=== PATIENT | male | born 1940 | race Caucasian/White ===

== ENCOUNTER 2020-02-08 14:49 | Emergency (ER) | payer MEDICARE ==
[~2020-02-08] VITALS: Ht 167.6 cm; Wt 89.4 kg
[2020-02-08] MEDS ORDERED: SODIUM CHLORIDE 0.9% 1000ML 1,000 ML IV ONE (14:50)
[2020-02-08 15:58] LABS: BASOPHILS % (AUTO) 0.6 % (0.0-5.0); EOSINOPHILS % (AUTO) 2.4 % (0.0-8.0); HEMATOCRIT 37.8 % (42-54); LYMPHOCYTES % (AUTO) 27.6 % (21.0-51.0); MEAN CORPUSCULAR HEMOGLOBIN 28.7 pg (27.0-33.0); MEAN CORPUSCULAR HGB CONC 31.7 g/dL (32.0-36.0); MEAN CORPUSCULAR VOLUME 90.4 fL (79-99); MONOCYTES % (AUTO) 9.1 % (3.0-13.0); NEUTROPHILS % (AUTO) 59.9 % (40.0-77.0); PLATELET COUNT (AUTO) 206 K/uL (130-400); RED BLOOD CELL COUNT(AUTO) 4.18 MIL/uL (4.50-6.20); RED CELL DISTRIBUTION WIDTH 14.3 % (11.0-15.5)
[2020-02-08 16:08] LABS: CREATININE 1.2 mg/dL (0.5-1.5); POTASSIUM 4.4 mmol/L (3.5-5.1)
[2020-02-08 16:13] LABS: ALBUMIN 3.6 g/dL (3.5-5.0); BILIRUBIN,TOTAL 0.3 mg/dL (0.2-1.0); TOTAL PROTEIN, SERUM 7.3 g/dL (6.0-8.3)
[2020-02-08 16:13] LABS: APPEARANCE,URINE Clear (CLEAR); BILIRUBIN,URINE Negative (NEGATIVE); COLOR,URINE Yellow (YELLOW); GLUCOSE, URINE (UA) Negative (NEGATIVE); KETONES,URINE Negative (NEGATIVE); LEUKOCYTE ESTERASE ,URINE Negative (NEGATIVE); NITRATE,URINE Negative (NEGATIVE); OCCULT BLOOD,URINE Negative (NEGATIVE); PH,URINE 5.5 (5.0-8.0); PROTEIN,URINE Negative (NEGATIVE); UROBILINOGEN,URINE 0.2 mg/dL (0.2-1.0)
[2020-02-08] MEDS ORDERED: KETOROLAC TROMETHAMINE 30MG/ML ONE (16:14)
[2020-02-08 17:18] LABS: AMYLASE 48 U/L (25-115); LIPASE 161 U/L (114-286)
[2020-02-08] MEDS ORDERED: PANTOPRAZOLE 40 MG/VIAL IVP SCH (17:30)
== END 2020-02-08 19:25 | disposition left against medical advice (07) ==
LOC: EDH 14:49
DX: R10.84 Generalized abdominal pain (principal); M51.35 Other intervertebral disc degeneration, thoracolumbar region; K62.89 Other specified diseases of anus and rectum; R39.89 Other symptoms and signs involving the genitourinary system; F31.9 Bipolar disorder, unspecified
CPT/HCPCS: 36415; 74176; 80053; 81003; 82150; 83690; 83880; 84484; 85025; 93005; 96374; 96375; 99291; C9113; J1885; J7030

== ENCOUNTER 2020-02-13 13:59 | Emergency (ER) | payer MEDICARE ==
[2020-02-13 14:38] LABS: BASOPHILS % (AUTO) 0.7 % (0.0-5.0); EOSINOPHILS % (AUTO) 3.7 % (0.0-8.0); HEMATOCRIT 37.6 % (42-54); LYMPHOCYTES % (AUTO) 27.6 % (21.0-51.0); MEAN CORPUSCULAR HEMOGLOBIN 28.4 pg (27.0-33.0); MEAN CORPUSCULAR HGB CONC 31.9 g/dL (32.0-36.0); MEAN CORPUSCULAR VOLUME 89.1 fL (79-99); NEUTROPHILS % (AUTO) 59.7 % (40.0-77.0); PLATELET COUNT (AUTO) 211 K/uL (130-400); RED BLOOD CELL COUNT(AUTO) 4.22 MIL/uL (4.50-6.20); RED CELL DISTRIBUTION WIDTH 14.5 % (11.0-15.5); WHITE BLOOD COUNT (AUTO) 5.9 K/uL (4.8-10.8)
[2020-02-13 14:52] LABS: APPEARANCE,URINE Clear (CLEAR); BILIRUBIN,URINE Negative (NEGATIVE); COLOR,URINE Dark Yellow (YELLOW); GLUCOSE, URINE (UA) Negative (NEGATIVE); KETONES,URINE Negative (NEGATIVE); LEUKOCYTE ESTERASE ,URINE Negative (NEGATIVE); NITRATE,URINE Negative (NEGATIVE); OCCULT BLOOD,URINE Negative (NEGATIVE); PH,URINE 6.5 (5.0-8.0); PROTEIN,URINE POS 1+ mg/dL (NEGATIVE); UROBILINOGEN,URINE 0.2 mg/dL (0.2-1.0)
[2020-02-13 14:55] LABS: CREATININE 1.2 mg/dL (0.5-1.5); POTASSIUM 4.1 mmol/L (3.5-5.1)
[2020-02-13 14:56] LABS: INR 0.94 (0.85-1.15); PARTIAL THROMBOPLASTIN TIME 25.1 SEC (26.3-35.5); PROTHROMBIN TIME 10.2 SEC (9.6-11.6)
[2020-02-13 15:01] LABS: ALBUMIN 3.4 g/dL (3.5-5.0); BILIRUBIN,TOTAL 0.3 mg/dL (0.2-1.0); TOTAL PROTEIN, SERUM 7.1 g/dL (6.0-8.3)
[2020-02-13 15:03] LABS: BACTERIA,URINE Rare /HPF (None Seen); RBC,URINE None Seen /HPF (0-1); SQUAMOUS EPITHELIAL CELL,UR None Seen /HPF (0-2)
[2020-02-13 15:32] LABS: B-TYPE NATRIURETIC PEPTIDE 166 pg/mL (0-100)
[2020-02-13] MEDS ORDERED: ACETAMINOPHEN 325 MG TAB ONE (16:00)
[2020-02-13] MEDS ORDERED: AZITHROMYCIN 250 MG TABLET PO ONE (16:00)
== END 2020-02-13 17:03 | disposition home or self-care (01) ==
LOC: EDH 13:59
DX: R10.9 Unspecified abdominal pain (principal); M54.5 Low back pain; R35.0 Frequency of micturition; F31.9 Bipolar disorder, unspecified
CPT/HCPCS: 36415; 71045; 80053; 81001; 82550; 83690; 83880; 84484; 85025; 85610; 85730; 93005

== ENCOUNTER → 2020-04-30 | Outpatient (CLI) | payer MEDICARE ==
[~2020-04-30] MED LIST: GADODIAMIDE 10 MMOL/20 ML VIAL IV ONE
== END | disposition home or self-care (01) ==
LOC: RAH 12:40
PROVIDERS: ATTEND Internal Medicine
DX: M47.816 Spondylosis without myelopathy or radiculopathy, lumbar region (principal); M51.24 Other intervertebral disc displacement, thoracic region
CPT/HCPCS: 72157; 72158; A9579

== ENCOUNTER → 2020-05-10 | Outpatient (CLI) | payer MEDICARE | END | disposition home or self-care (01) | LOC: RAH 11:10 | PROVIDERS: ATTEND Internal Medicine | DX: R10.10 Upper abdominal pain, unspecified (principal) | CPT/HCPCS: 78264; A9541 ==

== ENCOUNTER → 2020-07-24 | Outpatient (CLI) | payer MEDICARE ==
[~2020-07-24] MED LIST changes: -GADODIAMIDE 10 MMOL/20 ML VIAL IV ONE; +IOHEXOL-350 75 ML VIAL IV ONE
== END | disposition home or self-care (01) ==
LOC: RAH 09:20
PROVIDERS: ATTEND Internal Medicine Gastroenterology
DX: N20.0 Calculus of kidney (principal); N28.1 Cyst of kidney, acquired; J90 Pleural effusion, not elsewhere classified; J98.11 Atelectasis; R16.0 Hepatomegaly, not elsewhere classified; I25.10 Atherosclerotic heart disease of native coronary artery without angina pectoris; M47.815 Spondylosis without myelopathy or radiculopathy, thoracolumbar region; R14.0 Abdominal distension (gaseous)
CPT/HCPCS: 74178; Q9967

== ENCOUNTER 2021-08-16 19:58 | Inpatient (IN) | payer MEDICARE ==
[~2021-08-16] VITALS: Ht 167.6 cm; Wt 94.8 kg
[2021-08-16] MEDS ORDERED: HYDROMORPHONE 1 MG INJ IVP ONE (21:30)
[2021-08-16] MEDS ORDERED: 0.9%NACL 1000ML 1,000 ML IV ONE (21:30)
[2021-08-16] MEDS ORDERED: ONDANSETRON 4MG INJ IVP ONE (21:30)
[2021-08-16] MEDS ORDERED: ONDANSETRON 4MG INJ ONE (21:52)
[2021-08-16] MEDS ORDERED: HYDROMORPHONE 0.5 MG SYG (0.5MG/0.5ML) ONE (21:53)
[2021-08-16 21:57] LABS: BASOPHILS % (AUTO) 0.2 % (0.0-5.0); EOSINOPHILS % (AUTO) 0.3 % (0.0-8.0); HEMATOCRIT 38.1 % (42-54); LYMPHOCYTES % (AUTO) 13.5 % (21.0-51.0); MEAN CORPUSCULAR HEMOGLOBIN 31.4 pg (27.0-33.0); MEAN CORPUSCULAR HGB CONC 31.2 g/dL (32.0-36.0); MEAN CORPUSCULAR VOLUME 100.5 fL (79-99); MONOCYTES % (AUTO) 9.3 % (3.0-13.0); NEUTROPHILS % (AUTO) 75.4 % (40.0-77.0); PLATELET COUNT (AUTO) 219 K/uL (130-400); RED BLOOD CELL COUNT(AUTO) 3.79 MIL/uL (4.50-6.20); RED CELL DISTRIBUTION WIDTH 14.7 % (11.0-15.5); WHITE BLOOD COUNT (AUTO) 12.6 K/uL (4.8-10.8)
[2021-08-16 22:16] LABS: CREATININE 1.1 mg/dL (0.5-1.5); POTASSIUM 4.5 mmol/L (3.5-5.1)
[2021-08-16 22:21] LABS: ALBUMIN 3.1 g/dL (3.5-5.0); BILIRUBIN,TOTAL 1.6 mg/dL (0.2-1.0); TOTAL PROTEIN, SERUM 7.1 g/dL (6.0-8.3)
[2021-08-17] MEDS ORDERED: ACETAMINOPHEN 325 MG TAB PO PRN ×2 (01:00)
[2021-08-17] MEDS ORDERED: NITROGLYCERIN 0.4 MG SL TAB SL PRN (01:00)
[2021-08-17] MEDS ORDERED: ONDANSETRON 4MG INJ IV PRN (01:00)
[2021-08-17 01:20] LABS: HEMOGLOBIN A1C 7.1 % (4.0-6.0)
[2021-08-17] MEDS: LACTATED RINGERS 1000ML 1,000 ML IV SCH ×3 (01:39→20:19)
[2021-08-17 02:05] LABS: APPEARANCE,URINE Clear (CLEAR); BILIRUBIN,URINE Small (NEGATIVE); COLOR,URINE Dark Yellow (YELLOW); GLUCOSE, URINE (UA) Negative (NEGATIVE); KETONES,URINE Trace mg/dL (NEGATIVE); LEUKOCYTE ESTERASE ,URINE Trace (NEGATIVE); NITRATE,URINE Negative (NEGATIVE); OCCULT BLOOD,URINE Negative (NEGATIVE); PROTEIN,URINE Trace mg/dL (NEGATIVE)
[2021-08-17 02:14] LABS: BACTERIA,URINE Few /HPF (None Seen); RBC,URINE 0-1 /HPF (0-1); SQUAMOUS EPITHELIAL CELL,UR 0-2 /HPF (0-2); WBC,URINE 0-1 /HPF (0-1)
[2021-08-17 06:41] LABS: BASOPHILS % (AUTO) 0.1 % (0.0-5.0); EOSINOPHILS % (AUTO) 0.2 % (0.0-8.0); HEMATOCRIT 35.8 % (42-54); LYMPHOCYTES % (AUTO) 12.3 % (21.0-51.0); MEAN CORPUSCULAR HEMOGLOBIN 31.2 pg (27.0-33.0); MEAN CORPUSCULAR VOLUME 100.6 fL (79-99); MONOCYTES % (AUTO) 11.6 % (3.0-13.0); NEUTROPHILS % (AUTO) 74.8 % (40.0-77.0); PLATELET COUNT (AUTO) 201 K/uL (130-400); RED BLOOD CELL COUNT(AUTO) 3.56 MIL/uL (4.50-6.20); RED CELL DISTRIBUTION WIDTH 14.8 % (11.0-15.5)
[2021-08-17 06:52] LABS: INR 1.07 (0.85-1.15); PROTHROMBIN TIME 11.6 SEC (9.6-11.6)
[2021-08-17 06:54] LABS: PARTIAL THROMBOPLASTIN TIME 25.2 SEC (26.3-35.5)
[2021-08-17 06:59] LABS: ALBUMIN 2.6 g/dL (3.5-5.0); MAGNESIUM 1.6 mg/dL (1.80-2.40); POTASSIUM 4.9 mmol/L (3.5-5.1); TOTAL PROTEIN, SERUM 6.1 g/dL (6.0-8.3)
[2021-08-17 07:06] LABS: CHOLESTEROL 108 mg/dL (<200); HDL CHOLESTEROL 36 mg/dL (29-71); LDL DIRECT 34 mg/dL (0-99); TRIGLYCERIDES 126 mg/dL (30-200)
[2021-08-17] MEDS ORDERED: MAGNESIUM 2GM PREMIX 50ML 50 ML IV PRN (07:30)
[2021-08-17 07:59] VITALS: BP 146/69
[2021-08-17] MEDS: ENOXAPARIN SODIUM 40 MG/0.4 ML SYRINGE SQ SCH (09:00)
[2021-08-17] MEDS: FAMOTIDINE 20MG VIAL IV SCH ×2 (10:20→20:19)
[2021-08-17 10:51] VITALS: BP 153/74
[2021-08-17] MEDS ORDERED: ZOSYN 3.375GM +NS 50ML IV SCH (11:30)
[2021-08-17] MEDS: ZOSYN 3.375GM+NS 50ML 50 ML IV SCH ×2 (12:40→20:19)
[2021-08-17] MEDS ORDERED: GADOTERATE MEGLUMINE 10 MMOL/20 ML VIAL IV ONE (13:47)
[2021-08-17 16:12] VITALS: BP 135/67
[2021-08-17] MEDS ORDERED: RIVA20TA PO (19:52)
[2021-08-17] MEDS ORDERED: LEVO100C4 PO (19:52)
[2021-08-17] MEDS ORDERED: DIVA500T52 PO (19:52)
[2021-08-17] MEDS ORDERED: QUET25TA36 PO (19:52)
[2021-08-17] MEDS ORDERED: TRAZ-185 PO (19:52)
[2021-08-17] MEDS ORDERED: AMIO200T68 PO (19:52)
[2021-08-17] MEDS ORDERED: FURO20TA4 PO (19:52)
[2021-08-17] MEDS ORDERED: IRON1CAP30 PO (19:52)
[2021-08-17] MEDS ORDERED: ROSU20TA31 PO (19:52)
[2021-08-17] MEDS ORDERED: OMEG-184 PO (19:52)
[2021-08-17] MEDS ORDERED: VITA1CAP PO (19:52)
[2021-08-17 20:00] VITALS: BP 161/79
[2021-08-18] VITALS (18 sets, daily range): BP systolic 91–193; BP diastolic 41–90
[2021-08-18] MEDS ORDERED: TRAZODONE HCL 50 MG TAB PO SCH ×2 (01:30→21:00)
[2021-08-18] MEDS: ZOSYN 3.375GM+NS 50ML 50 ML IV SCH ×3 (04:41→20:50)
[2021-08-18] MEDS: LACTATED RINGERS 1000ML 1,000 ML IV SCH (04:45)
[2021-08-18 05:45] LABS: HEMATOCRIT 35.5 % (42-54); RED BLOOD CELL COUNT(AUTO) 3.55 MIL/uL (4.50-6.20); RED CELL DISTRIBUTION WIDTH 14.6 % (11.0-15.5); WHITE BLOOD COUNT (AUTO) 9.6 K/uL (4.8-10.8)
[2021-08-18 06:05] LABS: ALBUMIN 2.5 g/dL (3.5-5.0); BILIRUBIN,TOTAL 5.8 mg/dL (0.2-1.0); MAGNESIUM 1.9 mg/dL (1.80-2.40); TOTAL PROTEIN, SERUM 6.4 g/dL (6.0-8.3)
[2021-08-18] MEDS: LEVOTHYROXINE 100 MCG TABLET PO SCH (07:12)
[2021-08-18] MEDS: AMIODARONE 200 MG TABLET PO SCH ×2 (09:00→20:50)
[2021-08-18] MEDS: ENOXAPARIN SODIUM 40 MG/0.4 ML SYRINGE SQ SCH ×2 (09:00→09:25)
[2021-08-18] MEDS ORDERED: FUROSEMIDE 20 MG TABLET PO SCH (09:00)
[2021-08-18] MEDS: FAMOTIDINE 20MG VIAL IV SCH ×2 (09:23→20:50)
[2021-08-18] MEDS: FE FUMARATE/FA/MV, MIN COMB#15 1 TAB PO SCH (09:23)
[2021-08-18] MEDS: VITAMIN B COMPLEX 1 CAPSULE PO SCH (09:23)
[2021-08-18] MEDS: FISH OIL 1000 MG/CAP PO SCH (09:23)
[2021-08-18 10:34] LABS: ABG BASE EXCESS 6.6 mmol/L (-2.0-3.0); ABG HCO3 31.5 mmol/L (21.0-28.0); ABG OXYGEN SATURATION 92.5 % (95.0-99.0); ABG PCO2 46 mmHg (35-48)
[2021-08-18] MEDS ORDERED: VANCOMYCIN PROTOCOL PER PHARMACY IV SCH ×2 (11:30→12:00)
[2021-08-18] MEDS ORDERED: FUROSEMIDE 20MG VIAL ONE (11:46)
[2021-08-18] MEDS ORDERED: IPRATROPIUM/ALBUTEROL SULFATE 3 ML SOLUTION IH SCH (12:00)
[2021-08-18] MEDS: FUROSEMIDE 20MG VIAL IV SCH (12:15)
[2021-08-18] MEDS ORDERED: VANCOMYCIN 1.25GM/NS 250ML IVPB SCH ×2 (13:00)
[2021-08-18] MEDS ORDERED: MORPHINE 2 MG SYG IVP PRN (13:30)
[2021-08-18] MEDS: ACETAMINOPHEN WITH CODEINE 1 TAB TAB PO PRN (13:47)
[2021-08-18] MEDS: VANCOMYCIN 750MG VIAL IV SCH (17:29)
[2021-08-18] MEDS ORDERED: VANCOMYCIN KIT 1 GM/250 ML IV.KIT IV ONE (18:00)
[2021-08-18] MEDS: ATORVASTATIN 40 MG TABLET PO SCH (20:50)
[2021-08-18] MEDS: DIVALPROEX SODIUM 250 MG TABLET.DR PO SCH (20:50)
[2021-08-18] MEDS ORDERED: TRAZODONE HCL 50 MG TAB PO PRN (21:00)
[2021-08-18] MEDS ORDERED: VANCOMYCIN KIT 1 GM/250 ML IV.KIT IV SCH (21:00)
[2021-08-18] MEDS ORDERED: QUETIAPINE FUMARATE 25 MG TAB PO SCH (21:00)
[2021-08-18] MEDS ORDERED: 0.9% NACL 250ML 250 ML IV SCH (21:00)
[2021-08-19] VITALS (27 sets, daily range): BP systolic 90–134; BP diastolic 43–68
[2021-08-19] MEDS: FUROSEMIDE 20MG VIAL IV SCH ×2 (00:03→11:38)
[2021-08-19] MEDS: ACETAMINOPHEN WITH CODEINE 1 TAB TAB PO PRN (03:28)
[2021-08-19 04:48] LABS: CREATININE 1.3 mg/dL (0.5-1.5)
[2021-08-19 05:05] LABS: BASOPHILS % (AUTO) 0.2 % (0.0-5.0); EOSINOPHILS % (AUTO) 1.5 % (0.0-8.0); HEMATOCRIT 35.2 % (42-54); LYMPHOCYTES % (AUTO) 11.5 % (21.0-51.0); MEAN CORPUSCULAR HEMOGLOBIN 31.7 pg (27.0-33.0); MEAN CORPUSCULAR HGB CONC 31.5 g/dL (32.0-36.0); MEAN CORPUSCULAR VOLUME 100.6 fL (79-99); MONOCYTES % (AUTO) 7.6 % (3.0-13.0); NEUTROPHILS % (AUTO) 78.4 % (40.0-77.0); PLATELET COUNT (AUTO) 147 K/uL (130-400); RED CELL DISTRIBUTION WIDTH 14.8 % (11.0-15.5); WHITE BLOOD COUNT (AUTO) 11.1 K/uL (4.8-10.8)
[2021-08-19] MEDS: ZOSYN 3.375GM+NS 50ML 50 ML IV SCH ×3 (05:34→20:16)
[2021-08-19] MEDS: VANCOMYCIN 750MG VIAL IV SCH ×2 (05:34→18:49)
[2021-08-19] MEDS: LEVOTHYROXINE 100 MCG TABLET PO SCH (05:35)
[2021-08-19] MEDS: FE FUMARATE/FA/MV, MIN COMB#15 1 TAB PO SCH (09:00)
[2021-08-19] MEDS: FISH OIL 1000 MG/CAP PO SCH (09:00)
[2021-08-19] MEDS: VITAMIN B COMPLEX 1 CAPSULE PO SCH (09:00)
[2021-08-19] MEDS: FAMOTIDINE 20MG VIAL IV SCH ×2 (11:37→20:16)
[2021-08-19] MEDS: AMIODARONE 200 MG TABLET PO SCH ×2 (11:38→20:16)
[2021-08-19] MEDS: LACTATED RINGERS 1000ML 1,000 ML IV SCH (13:33)
[2021-08-19] MEDS: ENOXAPARIN SODIUM 40 MG/0.4 ML SYRINGE SQ SCH (16:28)
[2021-08-19] MEDS: DIVALPROEX SODIUM 250 MG TABLET.DR PO SCH (20:16)
[2021-08-19] MEDS: ATORVASTATIN 40 MG TABLET PO SCH (20:16)
[2021-08-20] VITALS (30 sets, daily range): BP systolic 93–150; BP diastolic 45–118
[2021-08-20] MEDS: LACTATED RINGERS 1000ML 1,000 ML IV SCH (03:37)
[2021-08-20 04:00] LABS: BASOPHILS % (AUTO) 0.1 % (0.0-5.0); EOSINOPHILS % (AUTO) 0.1 % (0.0-8.0); LYMPHOCYTES % (AUTO) 7.3 % (21.0-51.0); MEAN CORPUSCULAR HEMOGLOBIN 31.1 pg (27.0-33.0); MEAN CORPUSCULAR HGB CONC 30.3 g/dL (32.0-36.0); MEAN CORPUSCULAR VOLUME 102.6 fL (79-99); MONOCYTES % (AUTO) 7.9 % (3.0-13.0); NEUTROPHILS % (AUTO) 83.8 % (40.0-77.0); PLATELET COUNT (AUTO) 139 K/uL (130-400); RED BLOOD CELL COUNT(AUTO) 3.51 MIL/uL (4.50-6.20); RED CELL DISTRIBUTION WIDTH 14.9 % (11.0-15.5); WHITE BLOOD COUNT (AUTO) 14.3 K/uL (4.8-10.8)
[2021-08-20 04:40] LABS: B-TYPE NATRIURETIC PEPTIDE 335 pg/mL (0-100)
[2021-08-20 04:51] LABS: ALBUMIN 1.9 g/dL (3.5-5.0); BILIRUBIN,TOTAL 5.4 mg/dL (0.2-1.0); CREATININE 1.6 mg/dL (0.5-1.5); POTASSIUM 3.6 mmol/L (3.5-5.1); TOTAL PROTEIN, SERUM 6.4 g/dL (6.0-8.3)
[2021-08-20 05:15] LABS: ERYTHROCYTE SEDIMENTATION RATE 125 MM/HR (0-20)
[2021-08-20 05:15] LABS: ABG BASE EXCESS 5.5 mmol/L (-2.0-3.0); ABG HCO3 31.1 mmol/L (21.0-28.0); ABG OXYGEN SATURATION 92.7 % (95.0-99.0); ABG PCO2 50 mmHg (35-48)
[2021-08-20 05:32] LABS: CRP QUANTITATIVE 384.8 mg/L (0.00-9.0)
[2021-08-20] MEDS ORDERED: 0.9% NACL 250ML 250 ML ONE (05:42)
[2021-08-20] MEDS: ZOSYN 3.375GM+NS 50ML 50 ML IV SCH ×3 (05:56→21:28)
[2021-08-20] MEDS: VANCOMYCIN 750MG VIAL IV SCH (05:56)
[2021-08-20] MEDS: LEVOTHYROXINE 100 MCG TABLET PO SCH (05:56)
[2021-08-20] MEDS: ENOXAPARIN SODIUM 40 MG/0.4 ML SYRINGE SQ SCH (09:00)
[2021-08-20] MEDS: FE FUMARATE/FA/MV, MIN COMB#15 1 TAB PO SCH (09:00)
[2021-08-20] MEDS ORDERED: FUROSEMIDE 20MG VIAL IV ONE (09:00)
[2021-08-20] MEDS: FISH OIL 1000 MG/CAP PO SCH (09:00)
[2021-08-20] MEDS: VITAMIN B COMPLEX 1 CAPSULE PO SCH (09:00)
[2021-08-20 09:17] LABS: INR 1.22 (0.85-1.15); PROTHROMBIN TIME 13.1 SEC (9.6-11.6)
[2021-08-20 09:18] LABS: PARTIAL THROMBOPLASTIN TIME 30.2 SEC (26.3-35.5)
[2021-08-20] MEDS: AMIODARONE 200 MG TABLET PO SCH ×2 (10:06→21:28)
[2021-08-20] MEDS: FAMOTIDINE 20MG VIAL IV SCH ×2 (10:06→21:28)
[2021-08-20] MEDS ORDERED: IODIXANOL 320 MG/ML 100 ML VIAL ONE (12:04)
[2021-08-20] MEDS ORDERED: LIDOCAINE HCL 1% MDV 50ML VIAL ONE (12:04)
[2021-08-20] MEDS ORDERED: FENTANYL CITRATE PF 50 MCG/1 ML 2ML VIAL ONE (12:43)
[2021-08-20] MEDS: ACETAMINOPHEN WITH CODEINE 1 TAB TAB PO PRN (13:55)
[2021-08-20] MEDS ORDERED: LACTATED RINGERS 1000ML 1,000 ML IV ONE (14:07)
[2021-08-20] MEDS ORDERED: FUROSEMIDE 20MG VIAL ONE (16:12)
[2021-08-20] MEDS ORDERED: HYDROMORPHONE 0.5 MG SYG (0.5MG/0.5ML) ONE (17:48)
[2021-08-20] MEDS ORDERED: DiphenhydrAMINE HCL 50 MG/ML VIAL IM PRN (18:00)
[2021-08-20] MEDS ORDERED: BISACODYL 10 MG SUPP.RECT RC SCH (18:00)
[2021-08-20] MEDS ORDERED: HALOPERIDOL INJ 5 MG/ML VIAL IM PRN (18:00)
[2021-08-20] MEDS ORDERED: HYDROMORPHONE 0.5 MG SYG (0.5MG/0.5ML) IVP PRN ×2 (18:00)
[2021-08-20] MEDS: LUBIPROSTONE 24 MCG CAP PO SCH (19:00)
[2021-08-20] MEDS ORDERED: LUBIPROSTONE 24 MCG CAP PO SCH (20:22)
[2021-08-20] MEDS: VALPROATE SOD 250 MG/5 ML (PO) PO SCH (21:28)
[2021-08-20] MEDS: ATORVASTATIN 40 MG TABLET PO SCH (21:28)
[2021-08-20] MEDS: IPRATROPIUM 0.5 MG/2.5 ML INH IH SCH (22:36)
[2021-08-21] VITALS (20 sets, daily range): BP systolic 97–166; BP diastolic 47–102
[2021-08-21] MEDS ORDERED: LACTATED RINGERS 1000ML 1,000 ML IV ONE (04:05)
[2021-08-21] MEDS: ZOSYN 3.375GM+NS 50ML 50 ML IV SCH ×3 (05:01→22:00)
[2021-08-21 05:24] LABS: BASOPHILS % (AUTO) 0.1 % (0.0-5.0); EOSINOPHILS % (AUTO) 0.1 % (0.0-8.0); HEMATOCRIT 32.8 % (42-54); LYMPHOCYTES % (AUTO) 9.1 % (21.0-51.0); MEAN CORPUSCULAR HEMOGLOBIN 31.1 pg (27.0-33.0); MEAN CORPUSCULAR HGB CONC 30.8 g/dL (32.0-36.0); MEAN CORPUSCULAR VOLUME 100.9 fL (79-99); NEUTROPHILS % (AUTO) 82.2 % (40.0-77.0); PLATELET COUNT (AUTO) 115 K/uL (130-400); RED BLOOD CELL COUNT(AUTO) 3.25 MIL/uL (4.50-6.20); WHITE BLOOD COUNT (AUTO) 9.6 K/uL (4.8-10.8)
[2021-08-21] MEDS ORDERED: HYDROMORPHONE 2 MG VIAL (2MG/ML) ONE (05:34)
[2021-08-21] MEDS: LEVOTHYROXINE 100 MCG TABLET PO SCH (05:44)
[2021-08-21 05:54] LABS: ALBUMIN 1.4 g/dL (3.5-5.0); BILIRUBIN,TOTAL 3.1 mg/dL (0.2-1.0); CREATININE 1.8 mg/dL (0.5-1.5); MAGNESIUM 1.9 mg/dL (1.80-2.40); PHOSPHORUS 4.3 mg/dL (2.5-4.9); POTASSIUM 3.5 mmol/L (3.5-5.1); THYROID STIMULATING HORMONE 0.4 uIU/mL (0.36-3.74); TOTAL PROTEIN, SERUM 5.8 g/dL (6.0-8.3)
[2021-08-21 06:10] LABS: CRP QUANTITATIVE 380.4 mg/L (0.00-9.0)
[2021-08-21 06:29] LABS: ERYTHROCYTE SEDIMENTATION RATE 140 MM/HR (0-20)
[2021-08-21] MEDS: IPRATROPIUM 0.5 MG/2.5 ML INH IH SCH ×3 (06:32→18:41)
[2021-08-21] MEDS: LUBIPROSTONE 24 MCG CAP PO SCH ×2 (08:00→16:23)
[2021-08-21] MEDS ORDERED: FUROSEMIDE 20MG VIAL IV SCH (08:30)
[2021-08-21] MEDS: AMIODARONE 200 MG TABLET PO SCH ×2 (09:00→22:00)
[2021-08-21] MEDS: VITAMIN B COMPLEX 1 CAPSULE PO SCH (09:00)
[2021-08-21] MEDS: PANTOPRAZOLE 40 MG TAB DR PO SCH (09:00)
[2021-08-21] MEDS: FISH OIL 1000 MG/CAP PO SCH (09:00)
[2021-08-21] MEDS: FE FUMARATE/FA/MV, MIN COMB#15 1 TAB PO SCH (09:00)
[2021-08-21] MEDS: ENOXAPARIN SODIUM 40 MG/0.4 ML SYRINGE SQ SCH (09:00)
[2021-08-21 10:03] LABS: ABG BASE EXCESS 6.3 mmol/L (-2.0-3.0); ABG OXYGEN SATURATION 91.8 % (95.0-99.0); ABG PCO2 59 mmHg (35-48)
[2021-08-21] MEDS ORDERED: PHARMACY COMMUNICATION MISC SCH (14:30)
[2021-08-21 15:32] LABS: CREATININE,URINE RANDOM 146 mg/dL (30-135); SODIUM,URINE RANDOM < 14 mmol/l (40-220)
[2021-08-21 15:33] LABS: CHLORIDE,URINE RANDOM < 22 mmol/L (110-250); POTASSIUM,URINE RANDOM 56 mmol/L (25-125); SODIUM,URINE RANDOM < 14 mmol/l (40-220)
[2021-08-21] MEDS: FUROSEMIDE 40MG VIAL IVP SCH ×2 (16:15→16:22)
[2021-08-21] MEDS: ALBUMIN (HUMAN) 25% 100 ML IV SCH (16:22)
[2021-08-21] MEDS: VALPROATE SOD 250 MG/5 ML (PO) PO SCH (21:00)
[2021-08-21] MEDS: ATORVASTATIN 40 MG TABLET PO SCH (22:00)
[2021-08-22] VITALS (12 sets, daily range): BP systolic 132–165; BP diastolic 64–73
[2021-08-22] MEDS: IPRATROPIUM 0.5 MG/2.5 ML INH IH SCH ×5 (00:25→23:54)
[2021-08-22 03:48] LABS: HEMATOCRIT 32.2 % (42-54); MEAN CORPUSCULAR HEMOGLOBIN 30.9 pg (27.0-33.0); MEAN CORPUSCULAR HGB CONC 31.1 g/dL (32.0-36.0); MEAN CORPUSCULAR VOLUME 99.4 fL (79-99); PLATELET COUNT (AUTO) 122 K/uL (130-400); RED BLOOD CELL COUNT(AUTO) 3.24 MIL/uL (4.50-6.20); RED CELL DISTRIBUTION WIDTH 15.2 % (11.0-15.5); WHITE BLOOD COUNT (AUTO) 6.8 K/uL (4.8-10.8)
[2021-08-22 04:00] LABS: ALBUMIN 1.8 g/dL (3.5-5.0); BILIRUBIN,TOTAL 2.1 mg/dL (0.2-1.0); CREATININE 1.8 mg/dL (0.5-1.5); MAGNESIUM 2.1 mg/dL (1.80-2.40); PHOSPHORUS 3.9 mg/dL (2.5-4.9); POTASSIUM 3.3 mmol/L (3.5-5.1); TOTAL PROTEIN, SERUM 6.2 g/dL (6.0-8.3); URIC ACID 5.6 mg/dL (2.6-7.2)
[2021-08-22] MEDS: ALBUMIN (HUMAN) 25% 100 ML IV SCH (04:00)
[2021-08-22 05:04] LABS: LYMPHOCYTES % (MANUAL) 19 % (22-44); MAN.DIFF COMMENT-IMPRESSION MANUAL DIFFERENTIAL; MONOCYTES % (MANUAL) 10 % (2-9); SEGMENTED NEUTROPHILS % 71 % (40-70)
[2021-08-22] MEDS: ZOSYN 3.375GM+NS 50ML 50 ML IV SCH ×3 (06:01→21:45)
[2021-08-22] MEDS: LEVOTHYROXINE 100 MCG TABLET PO SCH (06:01)
[2021-08-22 08:09] LABS: ABG BASE EXCESS 9.8 mmol/L (-2.0-3.0); ABG HCO3 36.3 mmol/L (21.0-28.0); ABG PCO2 59 mmHg (35-48)
[2021-08-22] MEDS: AMIODARONE 200 MG TABLET PO SCH ×2 (08:14→14:00)
[2021-08-22] MEDS: FE FUMARATE/FA/MV, MIN COMB#15 1 TAB PO SCH (08:14)
[2021-08-22] MEDS: LUBIPROSTONE 24 MCG CAP PO SCH ×2 (08:14→17:44)
[2021-08-22] MEDS: VITAMIN B COMPLEX 1 CAPSULE PO SCH (08:14)
[2021-08-22] MEDS: FISH OIL 1000 MG/CAP PO SCH (08:14)
[2021-08-22] MEDS: PANTOPRAZOLE 40 MG TAB DR PO SCH (08:14)
[2021-08-22] MEDS: ENOXAPARIN SODIUM 40 MG/0.4 ML SYRINGE SQ SCH (08:16)
[2021-08-22] MEDS ORDERED: THIAMINE HCL 100 MG/ML 2ML VIAL IVP SCH (09:00)
[2021-08-22] MEDS: KCL 20 MEQ ERTAB PO SCH (13:30)
[2021-08-22] MEDS: FUROSEMIDE 20 MG TABLET PO SCH (14:00)
[2021-08-22] MEDS: RIVAROXABAN 20 MG TABLET PO SCH (17:44)
[2021-08-22] MEDS: ACETAMINOPHEN 325 MG TAB PO SCH (17:45)
[2021-08-22] MEDS ORDERED: TAMSULOSIN HCL 0.4 MG CAP.ER.24H PO SCH (21:00)
[2021-08-22] MEDS: ATORVASTATIN 40 MG TABLET PO SCH (21:45)
[2021-08-22] MEDS: VALPROATE SOD 250 MG/5 ML (PO) PO SCH (21:46)
[2021-08-23] MEDS: FUROSEMIDE 20 MG TABLET PO SCH ×2 (03:05→14:11)
[2021-08-23 04:00] VITALS: BP 160/75
[2021-08-23 04:55] LABS: BASOPHILS % (AUTO) 0.2 % (0.0-5.0); EOSINOPHILS % (AUTO) 0.7 % (0.0-8.0); HEMATOCRIT 31.5 % (42-54); LYMPHOCYTES % (AUTO) 22.7 % (21.0-51.0); MEAN CORPUSCULAR HEMOGLOBIN 31.1 pg (27.0-33.0); MEAN CORPUSCULAR HGB CONC 30.5 g/dL (32.0-36.0); MEAN CORPUSCULAR VOLUME 101.9 fL (79-99); MONOCYTES % (AUTO) 12.4 % (3.0-13.0); NEUTROPHILS % (AUTO) 63.1 % (40.0-77.0); PLATELET COUNT (AUTO) 132 K/uL (130-400); RED BLOOD CELL COUNT(AUTO) 3.09 MIL/uL (4.50-6.20); RED CELL DISTRIBUTION WIDTH 15.6 % (11.0-15.5); WHITE BLOOD COUNT (AUTO) 5.9 K/uL (4.8-10.8)
[2021-08-23 05:23] LABS: % IRON SATURATION 18.4 % (30-44)
[2021-08-23 05:41] LABS: ALANINE AMINOTRANSFERASE 108 U/L (12-78); ALBUMIN 1.8 g/dL (3.5-5.0); ASPARTATE AMINOTRANSFERASE 46 U/L (10-37); BILIRUBIN,TOTAL 1.5 mg/dL (0.2-1.0); CARBON DIOXIDE 39 mmol/L (21-32); CHLORIDE 108 mmol/L (101-111); CREATININE 1.7 mg/dL (0.5-1.5); GLOMERULAR FILTR. RATE CALC 41 mL/min (>60); GLUCOSE,RANDOM 164 mg/dL (70-105); POTASSIUM 3.2 mmol/L (3.5-5.1); SODIUM SERUM 154 mmol/L (136-145); UREA NITROGEN, BLOOD 39 mg/dL (7-18)
[2021-08-23] MEDS: ZOSYN 3.375GM+NS 50ML 50 ML IV SCH ×2 (05:45→14:09)
[2021-08-23] MEDS: LEVOTHYROXINE 100 MCG TABLET PO SCH (05:57)
[2021-08-23 06:01] LABS: ERYTHROCYTE SEDIMENTATION RATE 138 MM/HR (0-20)
[2021-08-23] MEDS: IPRATROPIUM 0.5 MG/2.5 ML INH IH SCH (07:46)
[2021-08-23 08:00] VITALS: BP 138/68
[2021-08-23] MEDS: LUBIPROSTONE 24 MCG CAP PO SCH ×2 (08:00→16:34)
[2021-08-23] MEDS ORDERED: METOPROLOL SUCCINATE 50 MG TAB.SR.24H PO SCH (09:00)
[2021-08-23] MEDS: VITAMIN B COMPLEX 1 CAPSULE PO SCH (09:43)
[2021-08-23] MEDS: PANTOPRAZOLE 40 MG TAB DR PO SCH (09:43)
[2021-08-23] MEDS: FISH OIL 1000 MG/CAP PO SCH (09:43)
[2021-08-23] MEDS: FE FUMARATE/FA/MV, MIN COMB#15 1 TAB PO SCH (09:43)
[2021-08-23] MEDS: AMIODARONE 200 MG TABLET PO SCH (09:44)
[2021-08-23 12:00] VITALS: BP 130/58
[2021-08-23] MEDS ORDERED: DEXTROSE 5%-WATER 1,000 ML IV SCH (12:00)
[2021-08-23] MEDS ORDERED: POTASSIUM CHLORIDE 20 MEQ/100 ML BAG IV SCH (12:00)
[2021-08-23] MEDS: IPRATROPIUM 0.5 MG/2.5 ML INH IH PRN ×2 (12:25→18:58)
[2021-08-23 13:16] LABS: ABG BASE EXCESS 12.5 mmol/L (-2.0-3.0); ABG HCO3 38.5 mmol/L (21.0-28.0); ABG PCO2 58 mmHg (35-48)
[2021-08-23] MEDS: KCL 20 MEQ ERTAB PO SCH (13:30)
[2021-08-23] MEDS: ACETAMINOPHEN 325 MG TAB PO SCH (13:51)
[2021-08-23 16:00] VITALS: BP 150/89
[2021-08-23] MEDS: RIVAROXABAN 20 MG TABLET PO SCH (16:34)
[2021-08-23 17:12] LABS: CREATININE 1.5 mg/dL (0.5-1.5); POTASSIUM 3.5 mmol/L (3.5-5.1)
[2021-08-23] MEDS ORDERED: HYDROMORPHONE 0.5 MG SYG (0.5MG/0.5ML) IVP ONE (17:30)
[2021-08-23] MEDS ORDERED: AMIO200T68 PO ×2 (17:46→17:49)
[2021-08-23] MEDS ORDERED: FURO20TA4 PO (17:49)
[2021-08-23] MEDS ORDERED: METO-408 PO (17:50)
[2021-08-24] MEDS ORDERED: KCL 20 MEQ ERTAB PO SCH (09:00)
== END 2021-08-23 20:19 | DRG 444 ==
LOC: EDH 19:58 → EDHIP 08-17 00:45 → 3BH 08-17 03:42 → 2CH 08-18 11:05 → 2DH 08-21 03:15 → 3CH 08-22 18:01
PROVIDERS: ADMIT Hospitalist; ATTEND Hospitalist
PROC: 0F9430Z Drainage of Gallbladder with Drainage Device, Percutaneous Approach (ICD-10-PCS; principal; 2021-08-20)
PROC: 5A09357 Assistance with Respiratory Ventilation, Less than 24 Consecutive Hours, Continuous Positive Airway Pressure (ICD-10-PCS; 2021-08-21)
PROC: 5A09357 Assistance with Respiratory Ventilation, Less than 24 Consecutive Hours, Continuous Positive Airway Pressure (ICD-10-PCS; 2021-08-22)
PROC: 5A09357 Assistance with Respiratory Ventilation, Less than 24 Consecutive Hours, Continuous Positive Airway Pressure (ICD-10-PCS; 2021-08-23)
DX: K81.0 Acute cholecystitis (principal); K85.10 Biliary acute pancreatitis without necrosis or infection; G92.9 Unspecified toxic encephalopathy; I50.43 Acute on chronic combined systolic (congestive) and diastolic (congestive) heart failure; J96.01 Acute respiratory failure with hypoxia; J96.02 Acute respiratory failure with hypercapnia; J69.0 Pneumonitis due to inhalation of food and vomit; E87.0 Hyperosmolality and hypernatremia; E87.1 Hypo-osmolality and hyponatremia; J44.0 Chronic obstructive pulmonary disease with (acute) lower respiratory infection; J98.11 Atelectasis; K57.32 Diverticulitis of large intestine without perforation or abscess without bleeding; N17.9 Acute kidney failure, unspecified; E83.42 Hypomagnesemia; E87.6 Hypokalemia; Z20.822 Contact with and (suspected) exposure to COVID-19; B95.7 Other staphylococcus as the cause of diseases classified elsewhere; B96.89 Other specified bacterial agents as the cause of diseases classified elsewhere; D64.9 Anemia, unspecified; D69.6 Thrombocytopenia, unspecified; E03.9 Hypothyroidism, unspecified; E66.9 Obesity, unspecified; Z66 Do not resuscitate; E78.00 Pure hypercholesterolemia, unspecified; E78.5 Hyperlipidemia, unspecified; E88.09 Other disorders of plasma-protein metabolism, not elsewhere classified; F02.80 Dementia in other diseases classified elsewhere, unspecified severity, without behavioral disturbance, psychotic disturbance, mood disturbance, and anxiety; F31.9 Bipolar disorder, unspecified; I11.0 Hypertensive heart disease with heart failure; I25.10 Atherosclerotic heart disease of native coronary artery without angina pectoris; I48.0 Paroxysmal atrial fibrillation; K59.03 Drug induced constipation; K82.8 Other specified diseases of gallbladder; N20.0 Calculus of kidney; N30.90 Cystitis, unspecified without hematuria; R74.8 Abnormal levels of other serum enzymes; T40.605A Adverse effect of unspecified narcotics, initial encounter; Z53.20 Procedure and treatment not carried out because of patient's decision for unspecified reasons; Z68.33 Body mass index [BMI] 33.0-33.9, adult; Z74.01 Bed confinement status; Z79.01 Long term (current) use of anticoagulants; Z85.46 Personal history of malignant neoplasm of prostate; Z91.19 Patient's noncompliance with other medical treatment and regimen; Z95.1 Presence of aortocoronary bypass graft; Z88.5 Allergy status to narcotic agent; Z88.8 Allergy status to other drugs, medicaments and biological substances; Y92.89 Other specified places as the place of occurrence of the external cause; E80.6 Other disorders of bilirubin metabolism; E87.8 Other disorders of electrolyte and fluid balance, not elsewhere classified
CPT/HCPCS: 10030; 36415; 36600; 47490; 70450; 71045; 74176; 74183; 76770; 78226; 80048; 80051; 80053; 80061; 80202; 81001; 82140; 82150; 82435; 82550; 82570; 82607; 82728; 82746; 82803; 82947; 82948; 83036; 83540; 83550; 83605; 83690; 83735; 83874; 83880; 83935; 84100; 84132; 84145; 84295; 84300; 84443; 84484; 84550; 85018; 85025; 85027; 85045; 85610; 85651; 85730; 86140; 87040; 87071; 87076; 87077; 87088; 87186; 87205; 87635; 93005; 93306; 94640; 94660; 94664; A9537; C1894; G0378; J1170; J1644; J1650; J1940; J2405; J2543; J3010; J3370; J3411; J3475; J3480; J3490; J7030; J7050; J7120; P9046; Q9967

== ENCOUNTER → 2021-12-16 | Outpatient (CLI) | payer MEDICARE ==
[~2021-12-16] MED LIST changes: +AMIO200T68 PO; +DIVA500T52 PO; +FURO20TA4 PO; -IOHEXOL-350 75 ML VIAL IV ONE; +IRON1CAP30 PO; +LEVO100C4 PO; +METO-408 PO; +OMEG-184 PO; +QUET25TA36 PO; +RIVA20TA PO; +ROSU20TA31 PO; +TRAZ-185 PO; +VITA1CAP PO
== END | disposition home or self-care (01) ==
LOC: RAH 14:16
PROVIDERS: ATTEND Internal Medicine Critical Care Medicine
DX: J90 Pleural effusion, not elsewhere classified (principal); J98.11 Atelectasis; J44.9 Chronic obstructive pulmonary disease, unspecified; J98.4 Other disorders of lung; I51.7 Cardiomegaly
CPT/HCPCS: 71250

== ENCOUNTER → 2022-01-23 | Outpatient (CLI) | payer MEDICARE ==
[~2022-01-23] MED LIST changes: +DIVA250T4 PO; +FERS325 PO; +MIRT-22 PO; +PANT40TA PO
[2022-01-23 14:25] LABS: BASOPHILS % (AUTO) 0.2 % (0.0-5.0); EOSINOPHILS % (AUTO) 3.3 % (0.0-8.0); HEMATOCRIT 24.5 % (42-54); LYMPHOCYTES % (AUTO) 25.6 % (21.0-51.0); MEAN CORPUSCULAR HEMOGLOBIN 28.9 pg (27.0-33.0); MEAN CORPUSCULAR HGB CONC 30.2 g/dL (32.0-36.0); MEAN CORPUSCULAR VOLUME 95.7 fL (79-99); MONOCYTES % (AUTO) 6.6 % (3.0-13.0); PLATELET COUNT (AUTO) 143 K/uL (130-400); RED BLOOD CELL COUNT(AUTO) 2.56 MIL/uL (4.50-6.20); RED CELL DISTRIBUTION WIDTH 18.6 % (11.0-15.5); WHITE BLOOD COUNT (AUTO) 6.4 K/uL (4.8-10.8)
[2022-01-23 14:40] LABS: INR 1.27 (0.85-1.15); PROTHROMBIN TIME 13.5 SEC (9.6-11.6)
[2022-01-23 14:41] LABS: CREATININE 1.1 mg/dL (0.5-1.5); PARTIAL THROMBOPLASTIN TIME 35.9 SEC (26.3-35.5); POTASSIUM 4.4 mmol/L (3.5-5.1)
[2022-01-23 14:56] LABS: THYROID STIMULATING HORMONE 3.97 uIU/mL (0.36-3.74)
== END | disposition home or self-care (01) ==
LOC: LAB 13:10
PROVIDERS: ATTEND Family Medicine
DX: Z01.818 Encounter for other preprocedural examination (principal); I33.9 Acute and subacute endocarditis, unspecified; E03.9 Hypothyroidism, unspecified
CPT/HCPCS: 36415; 80048; 84439; 84443; 85025; 85610; 85730; 93005

== ENCOUNTER → 2022-01-24 | Outpatient (CLI) | payer MEDICARE ==
[~2022-01-24] VITALS: Ht 167.6 cm; Wt 84.2 kg
[~2022-01-24] MED LIST changes: +IOHEXOL 350 MG/ML 100ML INFUS..BTL IV ONE
== END | disposition home or self-care (01) ==
LOC: RAH 07:20
PROVIDERS: ATTEND Internal Medicine Cardiovascular Disease
DX: I33.0 Acute and subacute infective endocarditis (principal); I25.10 Atherosclerotic heart disease of native coronary artery without angina pectoris; J47.9 Bronchiectasis, uncomplicated; J84.10 Pulmonary fibrosis, unspecified; M47.815 Spondylosis without myelopathy or radiculopathy, thoracolumbar region; R91.8 Other nonspecific abnormal finding of lung field; Z98.890 Other specified postprocedural states
CPT/HCPCS: 75574; Q9967

== ENCOUNTER 2022-01-28 06:24 | Day surgery (SDC) | payer MEDICARE ==
[~2022-01-28] VITALS: Ht 167.6 cm; Wt 84.2 kg
[2022-01-28] VITALS (17 sets, daily range): BP systolic 108–136; BP diastolic 53–65
[~2022-01-28 06:24] MED LIST changes: +0.9%NACL 1000ML 1,000 ML IV SCH; -DIVA500T52 PO; -IOHEXOL 350 MG/ML 100ML INFUS..BTL IV ONE; -IRON1CAP30 PO; -METO-408 PO; -OMEG-184 PO; -QUET25TA36 PO; -VITA1CAP PO
[2022-01-28] MEDS ORDERED: FLUMAZENIL 0.1MG/1ML 5ML VIAL IV ONE (06:35)
[2022-01-28] MEDS ORDERED: FENTANYL CITRATE PF 50 MCG/1 ML 2ML VIAL ONE (06:36)
[2022-01-28] MEDS ORDERED: NALOXONE HCL 0.4 MG/1 ML ML ONE (06:36)
[2022-01-28] MEDS ORDERED: MIDAZOLAM HCL 1 MG/ML 2ML VIAL ONE (06:37)
[2022-01-28 06:44] LABS: HEMATOCRIT 27.1 % (42-54); MEAN CORPUSCULAR HGB CONC 29.9 g/dL (32.0-36.0); MEAN CORPUSCULAR VOLUME 97.1 fL (79-99); RED BLOOD CELL COUNT(AUTO) 2.79 MIL/uL (4.50-6.20); RED CELL DISTRIBUTION WIDTH 20.3 % (11.0-15.5); WHITE BLOOD COUNT (AUTO) 6.7 K/uL (4.8-10.8)
[2022-01-28] MEDS ORDERED: LIDOCAINE HCL 2% VISCOUS 15 ML UDCUP ONE (06:47)
== END 2022-01-28 11:20 | disposition home or self-care (01) ==
LOC: DAH 06:24
PROVIDERS: ATTEND Internal Medicine Cardiovascular Disease
DX: I33.0 Acute and subacute infective endocarditis (principal); I08.1 Rheumatic disorders of both mitral and tricuspid valves; I11.0 Hypertensive heart disease with heart failure; I50.42 Chronic combined systolic (congestive) and diastolic (congestive) heart failure; I25.10 Atherosclerotic heart disease of native coronary artery without angina pectoris; G47.33 Obstructive sleep apnea (adult) (pediatric); E78.5 Hyperlipidemia, unspecified; J44.9 Chronic obstructive pulmonary disease, unspecified; F31.9 Bipolar disorder, unspecified; I48.0 Paroxysmal atrial fibrillation; D64.9 Anemia, unspecified; Z95.1 Presence of aortocoronary bypass graft; Z98.890 Other specified postprocedural states
CPT/HCPCS: 36415; 85027; 93312; A4215; A4216; A4221; A4222; A4223 ×3; A4335; A4520; A4554; A4606; A4615; A4657; A4663; A7002; J2250; J3010; J7030; 96374; 96375; 99152; 99153; J2310; J3490